=== PATIENT | female | born 1960 | race Caucasian/White ===

== ENCOUNTER → 2019-10-18 | Outpatient (CLI) | payer MEDICAID ==
[2019-10-18 13:14] LABS: HEMATOCRIT 46.8 % (37.0-47.0); HEMOGLOBIN 15.7 g/dL (12.5-16.0)
== END ==
LOC: LAB 13:02
PROVIDERS: Internal Medicine Medical Oncology
DX: D75.1 Secondary polycythemia (principal)

== ENCOUNTER → 2019-10-31 | Outpatient (CLI) | payer MEDICAID ==
[2019-10-31 09:26] LABS: HEMATOCRIT 46.4 % (37.0-47.0); HEMOGLOBIN 15.1 g/dL (12.5-16.0)
== END ==
LOC: LAB 09:14
PROVIDERS: Internal Medicine Medical Oncology
DX: D75.1 Secondary polycythemia (principal)

== ENCOUNTER → 2019-11-08 | Outpatient (CLI) | payer MEDICAID ==
[2019-11-08 14:05] LABS: HEMOGLOBIN 13.6 g/dL (12.5-16.0)
== END ==
LOC: LAB 13:38
PROVIDERS: Internal Medicine Medical Oncology
DX: D75.1 Secondary polycythemia (principal)

== ENCOUNTER → 2019-12-04 | Outpatient (CLI) | payer MEDICAID ==
[2019-12-04 12:40] LABS: HEMATOCRIT 46.7 % (37.0-47.0); HEMOGLOBIN 15.4 g/dL (12.5-16.0)
== END ==
LOC: LAB 12:28
PROVIDERS: Internal Medicine Medical Oncology
DX: D75.1 Secondary polycythemia (principal)